=== PATIENT | female | born 1990 | race Caucasian/White ===

== ENCOUNTER 2019-07-14 11:38 | Emergency (ER) | payer MEDICAID ==
[~2019-07-14] VITALS: Ht 170.2 cm; Wt 72.6 kg
[2019-07-14 11:49] VITALS: Ht 170.2 cm; Wt 72.6 kg
[2019-07-14 14:32] VITALS: BP 116/74
== END 2019-07-14 14:32 | disposition home or self-care (01) ==
LOC: ED 11:38
DX: S16.1XXA Strain of muscle, fascia and tendon at neck level, initial encounter (principal); Z88.0 Allergy status to penicillin; X58.XXXA Exposure to other specified factors, initial encounter; Y93.89 Activity, other specified; Y92.89 Other specified places as the place of occurrence of the external cause; Y99.8 Other external cause status
CPT/HCPCS: J1885